=== PATIENT | female | born 1940 | race Caucasian/White ===

== ENCOUNTER → 2018-05-21 10:11 | Outpatient (CLI) | payer MEDICARE, SELFPAY ==
--- NOTE | 2018-05-21 10:23 | XR_ITS ---
XR humerus RT COMPARISON: Right humerus 04/12/2018 HISTORY: Follow-up fracture TECHNIQUE: AP and lateral views FINDINGS: 1 compared to the previous study there now is a through and through tractor of the surgical neck of the humerus in addition to the greater tuberosity fracture. There is healthy callus formation at the fracture site. The distal humeral shaft and supracondylar humerus appear normal. IMPRESSION: Healing fracture of the right humeral head and neck as noted
== END ==
PROVIDERS: PCP Family Medicine; Visit Provider Family Medicine
DX: S42.254D Nondisplaced fracture of greater tuberosity of right humerus, subsequent encounter for fracture with routine healing (principal)
CPT/HCPCS: 73060

== ENCOUNTER → 2018-08-10 08:55 | Outpatient (CLI) | payer MEDICARE, SELFPAY ==
--- NOTE | 2018-08-10 09:02 | NM_ITS ---
NM bone scan whole body CLINICAL INDICATION: ITS.REASON: BREAST CA ORDERING PHYSICIAN: Shara Aleman PATIENT AGE: 77 years Comparison: None DOSE: 24.4 mCi technetium MDP FINDINGS: Multiple abnormal foci of increased activity are present including focal increase activity in the right sixth, seventh, and eighth ribs anteriorly, right eighth rib laterally, left seventh and eighth ribs anteriorly and junction of manubrium and body of the sternum. Intense increased activity is present in the proximal right humerus. A healing fracture is present involving the right humeral neck as seen on previous radiograph of 05/21/2018. Small foci of increased activity are noted within the thoracic spine at T9 on the right and T5 on both left and right side. Degenerative activity is present in the shoulders and knees and ankles. Rib detail study was performed on the same day and did not demonstrate any lytic lesions. The exam is however somewhat limited due to patient's inability to be properly positioned. IMPRESSION: 1. Multiple foci of rib activity. This is in a pattern that would be more consistent with posttraumatic changes. 2. Small foci of increased activity within the thoracic spine at T5 and T9 and at the manubrium/sternal body junction. These are indeterminate. 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 3. Intense increased activity in the right humeral neck fracture 4. Overall, the findings are not convincing for metastatic disease however, that entity certainly cannot be excluded. Please correlate with appropriate clinical parameters. MRI of the thoracic spine may be of further value. Sternal films may also be of further value.
--- NOTE | 2018-08-10 13:26 | HMH.ITSHM ---
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 []RICHARD
--- NOTE | 2018-08-10 13:52 | XR_ITS ---
XR ribs BI min 4V w CXR1V HISTORY: Right rib pain ITS.REASON: RT RIB PAIN, HOT SPOT ON BONE SCAN ORDERING PHYSICIAN: Shara Aleman PATIENT AGE: 77 years Comparison: None FINDINGS: Study is somewhat limited technically due to motion artifact. Frontal view of the chest shows cardiomegaly with mild coarsening of the bronchovascular markings. There is a healing right humeral neck fracture. No displaced rib fractures are apparent. No obvious lytic foci. Study is however fairly limited technically. Gastric lap band device is present. IMPRESSION: No displaced fractures or obvious lytic foci.
== END ==
PROVIDERS: Family Provider Internal Medicine; PCP Family Medicine; Visit Provider Internal Medicine Hematology & Oncology
DX: C50.811 Malignant neoplasm of overlapping sites of right female breast (principal); Z17.0 Estrogen receptor positive status [ER+]; I74.8 Embolism and thrombosis of other arteries
CPT/HCPCS: 71111; 78306; A9503

== ENCOUNTER 2018-09-14 08:30 | Outpatient (RCR) | payer MEDICARE, SELFPAY | END 2018-09-14 08:35 | disposition home or self-care (01) | LOC: PT 08:30 | PROVIDERS: Visit Provider Surgery | DX: I89.0 Lymphedema, not elsewhere classified (principal) | CPT/HCPCS: 97140; 97163; 97760 ==